=== PATIENT | male | born 1965 | race Two or more races ===

== ENCOUNTER 2024-11-03 18:50 | Emergency (ER) | payer MEDICARE, MEDICAID ==
[~2024-11-03] VITALS: Ht 180.3 cm; Wt 94.1 kg
[2024-11-03 20:49] VITALS: BP 137/77; PULSE 19; RESP 18; TEMP 97.8; O2SAT 93
[2024-11-03] MEDS: TETRACAINE HCL 0.5% OPTH(EYE) SOLN 4ML LEFTEYE ONE (21:07)
[2024-11-03] MEDS: FLUORESCEIN SOD OPTH TEST STRIP LEFTEYE ONE (21:07)
[2024-11-03] MEDS ORDERED: MOXI0.5D9 LEFTEYE (21:55)
--- NOTE | 2024-11-03 21:55 | ED.PDOC ---
Eye-HPI HPI Comments PT WAS CLEANING HIS CAR WITH COMPRESSED AIR, SOMETHING GOT IN HIS LEFT EYES, FE EL VERY IRRITATED. Chief Complaint: Eye Problem Time Seen by MD: 18:54 Reviewed Notes: Nurses Notes, Medications, Allergies Allergies: Coded Allergies: No Known Drug Allergy (Verified Allergy, Unknown, 11/03/24) Home Meds Active Scripts Moxifloxacin Hydrochloride (Moxifloxacin) 0.5 % Shyam, 1 DROP LEFTEYE TID for 7 Days, #2 ML Prov:TIERA FARLEY [employer] 11/03/24 Mode of Arrival: Ambulatory Constitutional: denies: chills, diaphoresis, fatigue, fever, malaise, sweats, weakness, others EENTM: reports: eye pain, eye redness; denies: blurred vision, double vision, ear bleeding, ear discharge, ear drainage, ear pain, ear ringing, hearing loss, mouth pain, mouth swelling, nasal discharge, nose bleeding, nose congestion, nose pain, photophobia, tearing, throat pain, throat swelling, voice changes, others Respiratory: denies: cough, hemoptysis, orthopnea, SOB at rest, shortness of breath, SOB with excertion, stridor, wheezing, others Cardiovascular: denies: chest pain, dizzy spells, diaphoresis, Dyspnea on exert ion, edema, irregular heart beat, left arm pain, lightheadedness, palpitations, PND, syncope, others Gastrointestinal: denies: abdomen distended, abdominal pain, blood streaked bowels, constipated, diarrhea, dysphagia, difficulty swallowing, hematemesis, melena, nausea, poor appetite, poor fluid intake, rectal bleeding, rectal pain, vomiting, others Genitourinary: denies: burning, dysuria, flank pain, frequency, hematuria, incontinence, penile discharge, penile sore, pain, testicle pain, testicle swelling, urgency, others Neurological: denies: dizziness, fainting, headache, left sided numbness, left sided weakness, numbness, paresthesia, pre-existing deficit, right sided numbness, right sided weakness, seizure, speech problems, tingling, tremors, weakness, others Musculoskeletal: denies: back pain, gout, joint pain, joint swelling, muscle pain, muscle stiffness, neck pain, others Integumetry: denies: bruises, change in color, change in hair/nails, dryness, laceration, lesions, lumps, rash, wounds, others Allergic/Immunocompromised: denies: Difficulty Healing, Frequent Infections, Hives, Itching, others Hematologic/Lymphatic: denies: anemia, blood clots, easy bleeding, easy bruising, swollen glands, others Endocrine: denies: excessive hunger, excessive sweating, excessive thirst, excessive urination, flushing, intolerance to cold, intolerance to heat, unexplained weight gain, unexplained weight loss, others Psychiatric: denies: anxiety, bipolar disorder, depression, hopeless, panic disorder, schizophrenia, sleepless, suicidal, others Physical Exam General Appearance: No Apparent Distress, Normal HEENT: Normal ENT Inspection, Pharynx Normal, TMs Normal, Other (Left eye hyperemia conjunctiva no noted obvious foreign body) Neck: Full Range of Motion, Non-Tender, Normal, Normal Inspection Respiratory: Chest Non-Tender, Lungs Clear, No Accessory Muscle Use, No Respiratory Distress, Normal Breath Sounds Cardiovascular: No Edema, No JVD, No Murmur, No Gallop, Normal Peripheral Pulses, Regular Rate/Rhythm Breast Exam: Deferred Gastrointestinal: No Organomegaly, Non Tender, No Pulsatile Mass, Normal Bowel Sounds, Soft Genitalia: Deferred Pelvic: Deferred Rectal: Deferred Extremities: No calf tenderness, Normal capillary refill, Normal inspection, Normal range of motion, Non-tender, No pedal edema Musculoskeletal : Apperance: Normal Neurologic: Alert, catering driver II-XII nml as Tested, No Motor Deficits, Normal Affect, Normal Mood, No Sensory Deficits Cerebellar Function: Normal Reflexes: Normal Skin: Dry, Normal Color, Warm Lymphatic: No Adenopathy Was a procedure done? Was a procedure done?: Yes Sedation Sedation?: No Informed consent obtained: Yes Other Procedure Procedure Wood's lamp examination Indication Left eye possible foreign body Anesthetic Tetracaine 0 1% Prep Fluorescein Success No noted obvious foreign body, ulcer, laceration, or abrasion. Informed consent obtained: Yes Risks, benefits, and alternati: Yes Notes Left eye flushed patient tolerated procedure well. EENT DIFF Eye: Corneal Ulceration, Foreign Body-Conjunctiva, Foreign Body-Corneal, Foreign Body-Intraocular, Foreign Body-Lid, Globe Rupture X-Ray, Labs, Meds, VS Vital Signs Date Time Temp Pulse Resp B/P (MAP) Pulse Ox O2 Delivery O2 Flow Rate FiO2 4/5/25 20:49 97.8 79 18 137/77 (97) 93 97.8 11/03/24 20:49 19 18 93 Room Air 11/03/24 19:15 97.8 79 18 137/77 (97) 93 97.8 Current Medications Medications (Trade) Dose Ordered Sig/Cory Route Start Time Stop Time Status Last Admin Tetracaine HCl (Tetracaine 0.5% Opth Soln) 1 drop ONCE ONCE LEFTEYE 11/03/24 21:00 11/03/24 21:01 DC 11/03/24 21:07 Fluorescein Sodium (Ful-Jami) 1 mg ONCE ONCE LEFTEYE 11/03/24 21:15 11/03/24 21:16 DC 11/03/24 21:07 X-Ray, Labs, Meds, VS Comment See procedure note. No obvious foreign body noted. Trial moxifloxacin into oph thalmic drops. Medications as prescribed side effects discussed. Advised patient to follow up with Ophthalmology in 24-48 hours. Advised to return to the ER for increasing pain, vision changes, or any concerning symptoms patient indicates understanding agrees with discharge plan of care Time of 1ST Reevaluation: 21:50 Reevaluation 1ST: Improved Patient Education/Counseling: Diagnosis, Treatment, Prognosis, Need For Follow Up Family Education/Counseling: Diagnosis, Treatment, Prognosis, Need For Follow Up Departure 1 Departure Time of Disposition: 21:52 Impression: Primary Impression: Foreign body sensation, left eye Disposition: HOME / SELF CARE / HOMELESS Condition: Stable e-Prescriptions Moxifloxacin Hydrochloride (Moxifloxacin) 0.5 % Shyam 1 DROP LEFTEYE TID for 7 Days, #2 ML Prov: TIERA FARLEY 11/03/24 Discharged With: Self Critical Care Note Critical Care Time?: No Stability Stability form required: No TIERA FARLEY Nov 03, 2024 21:55
== END 2024-11-03 22:02 | disposition home or self-care (01) ==
LOC: ER 18:55
DX: H57.8A2 Foreign body sensation, left eye (principal)